=== PATIENT | male | born 1975 | race Caucasian/White ===

== ENCOUNTER 2016-10-14 05:33 | Observation (INO) | payer OTHER ==
[~2016-10-14] VITALS: Ht 182.9 cm; Wt 123.6 kg
[2016-10-14] MEDS ORDERED: CeFAZolin 2 GM/DEXTROSE 50 ML IV ONE ×2 (05:47→07:30)
[2016-10-14] MEDS ORDERED: RINGERS SOLUTION,LACTATED 1,000 ML IV ONE ×2 (05:47→06:00)
[2016-10-14 06:40] LABS: PROTHROMBIN TIME 10.7 SEC (9.4-11.6)
[2016-10-14 06:40] LABS: BASOPHILS % (AUTO) 0.7 % (0.0-2.0); EOSINOPHILS % (AUTO) 3.9 % (1.0-6.0); HEMOGLOBIN 13.9 g/dL (13.5-17.5); LYMPHOCYTES # (AUTO) 2.4 K/uL (1.0-4.8); LYMPHOCYTES % (AUTO) 33.8 % (22.0-44.0); MEAN CORPUSCULAR HEMOGLOBIN 28.7 pg (26.0-34.0); MEAN CORPUSCULAR HGB CONC 33.1 G/dL (31.0-37.0); MEAN CORPUSCULAR VOLUME 87 fL (80-100); MONOCYTES # (AUTO) 0.6 K/uL (0.1-1.0); MONOCYTES % (AUTO) 8.2 % (2.0-9.0); NEUTROPHILS # (AUTO) 3.8 K/uL (1.8-7.7); NEUTROPHILS % (AUTO) 53.4 % (40.0-70.0); PLATELET COUNT (AUTO) 213 K/uL (150-450); RED BLOOD CELL COUNT(AUTO) 4.86 MIL/uL (4.50-5.90); RED CELL DISTRIBUTION WIDTH 13.4 % (11.5-14.5); WHITE BLOOD COUNT (AUTO) 7.2 K/uL (4.5-11.0)
[2016-10-14 06:52] LABS: ALANINE AMINOTRANSFERASE 95 U/L (12-78); ALBUMIN 3.7 g/dL (3.4-5.0); ASPARTATE AMINOTRANSFERASE 40 U/L (15-37); BILIRUBIN,TOTAL 0.5 mg/dL (0.1-1.0); CALCIUM, TOTAL 8.9 mg/dL (8.8-10.5); CHLORIDE 103 mmol/L (98-107); CREATININE 1.16 mg/dL (0.60-1.30); GLOMERULAR FILTR. RATE CALC > 60 mL/min (>60); POTASSIUM 4.2 mmol/L (3.5-5.1); SODIUM SERUM 139 mmol/L (136-145); TOTAL PROTEIN, SERUM 7.1 g/dL (6.4-8.2)
[2016-10-14 06:59] LABS: ANION GAP 10 mmol/L (8-16); CARBON DIOXIDE 26 mmol/L (22-29); UREA NITROGEN, BLOOD 22 mg/dL (7-18)
[2016-10-14] MEDS ORDERED: BUPIVACAINE HCL/PF 0.5% 30 ML VIAL ONE (07:02)
[2016-10-14] MEDS ORDERED: RINGERS SOLUTION,LACTATED 2,000 ML IV ONE (07:03)
[2016-10-14] MEDS ORDERED: BUPIVACAINE 0.25%/EPI 1:200,000/PF 10 ML VIAL ONE (07:04)
[2016-10-14] MEDS ORDERED: VANCOMYCIN HCL 1 GM/VIAL ONE (07:04)
[2016-10-14] MEDS ORDERED: FentaNYL CITRATE-PF 100 MCG/2 ML VIAL IVP PRN (08:00)
[2016-10-14] MEDS: OXYGEN THERAPY IH SCH ×2 (08:00→20:00)
[2016-10-14] MEDS ORDERED: MEPERIDINE-PF 25 MG/ML SYRINGE IVP PRN (08:00)
[2016-10-14] MEDS ORDERED: HYDROmorphone 2 MG/ML SYRINGE IVP PRN ×2 (08:00→10:00)
[2016-10-14] MEDS ORDERED: BENZOCAINE/MENTHOL LOZENGE [8 LOZENGES/PACKET] PO PRN (09:00)
[2016-10-14] MEDS ORDERED: ZOLPIDEM TARTRATE 10 MG TABLET PO PRN (09:00)
[2016-10-14] MEDS ORDERED: DiphenhydrAMINE HCL 50 MG/ML VIAL IVP PRN (09:00)
[2016-10-14] MEDS ORDERED: DEXAMETHASONE SOD PHOS 4 MG/ML VIAL IVP PRN (09:00)
[2016-10-14] MEDS ORDERED: ZOLPIDEM TARTRATE 5 MG TABLET PO PRN (10:00)
[2016-10-14] MEDS ORDERED: ONDANSETRON HCL 4 MG/2 ML VIAL IVP PRN (10:00)
[2016-10-14] MEDS ORDERED: PROMETHAZINE HCL 25 MG/ML VIAL IM PRN (10:00)
[2016-10-14 10:15] VITALS: BP 131/67
[2016-10-14] MEDS ORDERED: MIDAZOLAM HCL 2 MG/2 ML VIAL IVP ONE (10:45)
[2016-10-14] MEDS ORDERED: MORPHINE SULFATE/PF 0.5 MG/ML 10 ML AMP IVP ONE (10:45)
[2016-10-14] MEDS ORDERED: FentaNYL CITRATE-PF 100 MCG/2 ML VIAL IM ONE (10:45)
[2016-10-14] MEDS ORDERED: HYDROmorphone 2 MG/ML SYRINGE IVP ONE (10:45)
[2016-10-14] MEDS: DOCUSATE SODIUM 100 MG CAPSULE PO SCH ×2 (11:57→20:45)
[2016-10-14] MEDS: CYCLOBENZAPRINE HCL 10 MG TABLET PO PRN (11:58)
[2016-10-14] MEDS ORDERED: DEXAMETHASONE SOD PHOS 4 MG/ML VIAL IVP ONE (12:00)
[2016-10-14] MEDS ORDERED: SUCCINYLCHOLINE CHLORIDE 20 MG/ML 10 ML VIAL IVP ONE (12:00)
[2016-10-14] MEDS ORDERED: KETOROLAC TROMETHAMINE 60 MG/2 ML VIAL IM ONE (12:00)
[2016-10-14] MEDS ORDERED: LIDOCAINE HCL/PF 2% 5 ML VIAL INJ ONE (12:00)
[2016-10-14] MEDS ORDERED: METOCLOPRAMIDE HCL 5 MG/ML 2 ML VIAL IVP ONE (12:00)
[2016-10-14] MEDS ORDERED: ONDANSETRON HCL 4 MG/2 ML VIAL IVP ONE (12:00)
[2016-10-14] MEDS ORDERED: PROPOFOL 1% 20 ML VIAL IVP ONE (12:00)
[2016-10-14 12:13] VITALS: BP 120/77
[2016-10-14] MEDS: ACETAMINOPHEN 1000 MG/ISO-OSM 100 ML IV SCH ×2 (12:37→19:02)
[2016-10-14 15:32] VITALS: BP 122/69
[2016-10-14 19:42] VITALS: BP 135/63
[2016-10-15] MEDS ORDERED: SODIUM CHLORIDE 0.9% 250 ML IV ONE (01:13)
[2016-10-15] MEDS: ACETAMINOPHEN 1000 MG/ISO-OSM 100 ML IV SCH (01:14)
[2016-10-15 01:28] VITALS: BP 112/54
[2016-10-15 03:39] VITALS: BP 126/69
[2016-10-15] MEDS ORDERED: OxyCODONE HCL/ACETAMINOPHEN 10-325 MG TABLET PO PRN (07:00)
[2016-10-15 07:40] VITALS: BP 124/70
[2016-10-15] MEDS: OXYGEN THERAPY IH SCH (07:50)
[2016-10-15] MEDS: DOCUSATE SODIUM 100 MG CAPSULE PO SCH (08:06)
[2016-10-15] MEDS: CYCLOBENZAPRINE HCL 10 MG TABLET PO PRN (08:54)
== END 2016-10-15 10:46 | disposition home or self-care (01) ==
LOC: 4E 05:33
PROVIDERS: ADMIT Orthopaedic Surgery Orthopaedic Surgery of the Spine; ATTEND Orthopaedic Surgery Orthopaedic Surgery of the Spine
DX: M51.27 Other intervertebral disc displacement, lumbosacral region (principal)
CPT/HCPCS: 36415; 63047; 80053; 85025; 85610; 85730; 87081; 96374; 96375; 96376 ×2; 97161; 97165; 97535; G0378 ×2; J0131 ×2; J0330; J0690; J1100; J1170; J1885; J2250; J2274; J2405; J2704; J2765; J3010; J3370; J3490 ×3; J7050; J7120